=== PATIENT | male | born 1975 | race Caucasian/White ===

== ENCOUNTER 2022-09-25 12:26 | Inpatient (IN) | payer OTHER ==
[2022-09-25 12:46] VITALS: BMI 28.7
[2022-09-25] MEDS ORDERED: BENZONATATE 200 MG CAPSULE PO PRN (12:52)
[2022-09-25] MEDS ORDERED: ACETAMINOPHEN 325 MG TABLET (FP) PO PRN (12:52)
[2022-09-25] MEDS ORDERED: NALOXONE HCL (KLOXXADO) 8 MG SPRAY NS PRN (12:52)
[2022-09-25] MEDS ORDERED: MAGNESIUM HYDROX 2400MG/30ML ORAL SUSPENSION 30 ML CUP PO PRN (12:52)
[2022-09-25] MEDS ORDERED: LOPERAMIDE HCL 2 MG CAPSULE PO PRN (12:52)
[2022-09-25] MEDS ORDERED: guaiFENesin 600 MG TABLET.ER (FP) PO PRN (12:52)
[2022-09-25] MEDS ORDERED: POLYETHYLENE GLYCOL (HEALTHYLAX) 3350 17 GM PACKET PO PRN (12:52)
[2022-09-25] MEDS ORDERED: MAG HYDROX/AL HYDROX/SIMETH 30 ML UNIT-DOSE CUP PO PRN (12:52)
[2022-09-25] MEDS ORDERED: BENZOCAINE/MENTHOL (CHLORASEPTIC ) LOZENGE MM PRN (12:52)
[2022-09-25] MEDS ORDERED: NALOXONE HCL 0.4 MG/ML VIAL IM PRN (12:52)
[2022-09-25] MEDS ORDERED: TUBERCULIN PPD 5 TU/0.1ML VIAL ID ONE (16:40)
[2022-09-25] MEDS: PRENATAL VITAMINS W/ FOLIC ACID TABLET (FP) PO SCH (16:43)
[2022-09-25] MEDS: NICOTINE 10 MG CARTRIDGE (INHALER) IH PRN (18:46)
[2022-09-25] MEDS: THIAMINE HCL 100 MG TABLET (FP) PO SCH (21:26)
[2022-09-25] MEDS: MELATONIN 5 MG TABLETS PO SCH (21:26)
[2022-09-25] MEDS: IBUPROFEN 400 MG TABLET (FP) PO PRN (21:26)
[2022-09-25] MEDS: hydrOXYzine PAMOATE 25 MG CAPSULE (FP) PO PRN (21:26)
[2022-09-26] MEDS: IBUPROFEN 400 MG TABLET (FP) PO PRN (02:17)
[2022-09-26] MEDS: HYDROCHLOROTHIAZIDE 12.5 MG CAPSULE (FP) PO SCH (09:16)
[2022-09-26] MEDS: PANTOPRAZOLE 40 MG TABLET PO SCH (09:16)
[2022-09-26] MEDS: PRENATAL VITAMINS W/ FOLIC ACID TABLET (FP) PO SCH (09:16)
[2022-09-26] MEDS: LISINOPRIL 10 MG TABLET PO SCH (09:16)
[2022-09-26] MEDS: IBUPROFEN 600 MG TABLET (FP) PO PRN ×2 (09:17→14:42)
[2022-09-26] MEDS: NICOTINE 14 MG/24 HOURS TOPICAL PATCH TD SCH (09:18)
[2022-09-26] MEDS ORDERED: PATIENT'S OWN MEDICATION (NON-FORMULARY) (Lisinopril/Hydrochlorothiazide [Lisinopril-Hctz PO SCH (10:00)
[2022-09-26] MEDS ORDERED: BUPRENORPHINE HCL 75 MCG FILM BC ONE (10:45)
[2022-09-26] MEDS ORDERED: ZIPRASIDONE 60 MG CAPSULE PO ONE (12:12)
[2022-09-26] MEDS ORDERED: ZIPRASIDONE 20 MG CAPSULE PO ONE (12:12)
[2022-09-26] MEDS ORDERED: BENZTROPINE MESYLATE 1 MG TABLET PO ONE (12:13)
[2022-09-26] MEDS: AMOX TR/POT CLAV 500MG/125MG TABLETS (FP) PO SCH ×2 (14:04→16:42)
[2022-09-26 15:23] LABS: SYPHILIS W/ RPR CONF NON-REACTIVE (NONREACTIVE)
[2022-09-26] MEDS: THIAMINE HCL 100 MG TABLET (FP) PO SCH (21:11)
[2022-09-26] MEDS: MELATONIN 5 MG TABLETS PO SCH (21:11)
[2022-09-26] MEDS: BENZTROPINE MESYLATE 1 MG TABLET PO SCH (21:12)
[2022-09-26] MEDS: ZIPRASIDONE 60 MG CAPSULE PO SCH (22:25)
[2022-09-27] MEDS: IBUPROFEN 400 MG TABLET (FP) PO PRN ×2 (04:20→14:07)
[2022-09-27] MEDS: AMOX TR/POT CLAV 500MG/125MG TABLETS (FP) PO SCH ×3 (07:06→16:42)
[2022-09-27] MEDS: NICOTINE 14 MG/24 HOURS TOPICAL PATCH TD SCH (10:20)
[2022-09-27] MEDS: ESCITALOPRAM OXALATE 10 MG TABLET PO SCH (10:21)
[2022-09-27] MEDS: HYDROCHLOROTHIAZIDE 12.5 MG CAPSULE (FP) PO SCH (10:21)
[2022-09-27] MEDS: ZIPRASIDONE 60 MG CAPSULE PO SCH ×2 (10:21→21:11)
[2022-09-27] MEDS: PRENATAL VITAMINS W/ FOLIC ACID TABLET (FP) PO SCH (10:21)
[2022-09-27] MEDS: PANTOPRAZOLE 40 MG TABLET PO SCH (10:21)
[2022-09-27] MEDS: LISINOPRIL 10 MG TABLET PO SCH (10:21)
[2022-09-27] MEDS: BENZTROPINE MESYLATE 1 MG TABLET PO SCH ×2 (10:21→21:11)
[2022-09-27] MEDS: BUPRENORPHINE HCL 450 MCG FILM BC SCH ×2 (10:50→21:11)
[2022-09-27] MEDS: IBUPROFEN 600 MG TABLET (FP) PO PRN ×2 (19:09→22:50)
[2022-09-27] MEDS: MELATONIN 5 MG TABLETS PO SCH (21:10)
[2022-09-27] MEDS: THIAMINE HCL 100 MG TABLET (FP) PO SCH (21:11)
[2022-09-28] MEDS: AMOX TR/POT CLAV 500MG/125MG TABLETS (FP) PO SCH ×3 (07:06→17:00)
[2022-09-28] MEDS ORDERED: BUPRENORPHINE HCL 450 MCG FILM BC SCH (08:00)
[2022-09-28] MEDS: HYDROCHLOROTHIAZIDE 12.5 MG CAPSULE (FP) PO SCH (09:41)
[2022-09-28] MEDS: PRENATAL VITAMINS W/ FOLIC ACID TABLET (FP) PO SCH (09:41)
[2022-09-28] MEDS: NICOTINE 14 MG/24 HOURS TOPICAL PATCH TD SCH (09:41)
[2022-09-28] MEDS: ZIPRASIDONE 60 MG CAPSULE PO SCH ×2 (09:41→21:20)
[2022-09-28] MEDS: ESCITALOPRAM OXALATE 10 MG TABLET PO SCH (09:42)
[2022-09-28] MEDS: LISINOPRIL 10 MG TABLET PO SCH (09:42)
[2022-09-28] MEDS: BENZTROPINE MESYLATE 1 MG TABLET PO SCH ×2 (09:42→21:20)
[2022-09-28] MEDS: PANTOPRAZOLE 40 MG TABLET PO SCH (09:42)
[2022-09-28] MEDS: IBUPROFEN 600 MG TABLET (FP) PO PRN ×2 (09:43→17:00)
[2022-09-28] MEDS: NICOTINE 10 MG CARTRIDGE (INHALER) IH PRN (10:58)
[2022-09-28] MEDS: THIAMINE HCL 100 MG TABLET (FP) PO SCH (21:20)
[2022-09-28] MEDS: MELATONIN 5 MG TABLETS PO SCH (21:20)
[2022-09-28] MEDS: IBUPROFEN 400 MG TABLET (FP) PO PRN (21:22)
[2022-09-28] MEDS: hydrOXYzine PAMOATE 25 MG CAPSULE (FP) PO PRN (23:05)
[2022-09-29] MEDS: IBUPROFEN 400 MG TABLET (FP) PO PRN (06:08)
[2022-09-29] MEDS: AMOX TR/POT CLAV 500MG/125MG TABLETS (FP) PO SCH ×3 (07:02→16:55)
[2022-09-29] MEDS ORDERED: BUPRENORPHINE HCL 150 MCG FILM BC SCH (08:00)
[2022-09-29] MEDS ORDERED: BUPRENORPHINE HCL 150 MCG, BUPRENORPHINE HCL 75 MCG BC ONE (09:20)
[2022-09-29] MEDS: PANTOPRAZOLE 40 MG TABLET PO SCH (09:39)
[2022-09-29] MEDS: ESCITALOPRAM OXALATE 10 MG TABLET PO SCH (09:39)
[2022-09-29] MEDS: BENZTROPINE MESYLATE 1 MG TABLET PO SCH ×2 (09:39→21:15)
[2022-09-29] MEDS: ZIPRASIDONE 60 MG CAPSULE PO SCH ×2 (09:39→21:15)
[2022-09-29] MEDS: NICOTINE 14 MG/24 HOURS TOPICAL PATCH TD SCH (09:39)
[2022-09-29] MEDS: LISINOPRIL 10 MG TABLET PO SCH (09:39)
[2022-09-29] MEDS: PRENATAL VITAMINS W/ FOLIC ACID TABLET (FP) PO SCH (09:39)
[2022-09-29] MEDS: HYDROCHLOROTHIAZIDE 12.5 MG CAPSULE (FP) PO SCH (09:39)
[2022-09-29] MEDS: IBUPROFEN 600 MG TABLET (FP) PO PRN (16:56)
[2022-09-29] MEDS: hydrOXYzine PAMOATE 25 MG CAPSULE (FP) PO PRN (21:15)
[2022-09-29] MEDS: MELATONIN 5 MG TABLETS PO SCH (21:15)
[2022-09-29] MEDS: THIAMINE HCL 100 MG TABLET (FP) PO SCH (21:16)
[2022-09-30] MEDS: IBUPROFEN 400 MG TABLET (FP) PO PRN (06:21)
[2022-09-30] MEDS: AMOX TR/POT CLAV 500MG/125MG TABLETS (FP) PO SCH ×3 (07:06→16:55)
[2022-09-30] MEDS ORDERED: BUPRENORPHINE HCL 150 MCG FILM BC SCH (08:00)
[2022-09-30] MEDS: PANTOPRAZOLE 40 MG TABLET PO SCH (09:56)
[2022-09-30] MEDS: PRENATAL VITAMINS W/ FOLIC ACID TABLET (FP) PO SCH (09:56)
[2022-09-30] MEDS: ESCITALOPRAM OXALATE 10 MG TABLET PO SCH (09:56)
[2022-09-30] MEDS: BENZTROPINE MESYLATE 1 MG TABLET PO SCH ×2 (09:56→21:17)
[2022-09-30] MEDS: LISINOPRIL 10 MG TABLET PO SCH (09:56)
[2022-09-30] MEDS: HYDROCHLOROTHIAZIDE 12.5 MG CAPSULE (FP) PO SCH (09:56)
[2022-09-30] MEDS: NICOTINE 14 MG/24 HOURS TOPICAL PATCH TD SCH (09:57)
[2022-09-30] MEDS: ZIPRASIDONE 60 MG CAPSULE PO SCH ×2 (09:57→21:17)
[2022-09-30] MEDS: IBUPROFEN 600 MG TABLET (FP) PO PRN ×2 (16:55→21:18)
[2022-09-30] MEDS: MELATONIN 5 MG TABLETS PO SCH (21:17)
[2022-09-30] MEDS: THIAMINE HCL 100 MG TABLET (FP) PO SCH (21:18)
[2022-09-30] MEDS: hydrOXYzine PAMOATE 25 MG CAPSULE (FP) PO PRN (21:18)
[2022-10-01] MEDS: AMOX TR/POT CLAV 500MG/125MG TABLETS (FP) PO SCH ×3 (07:08→17:24)
[2022-10-01] MEDS ORDERED: BUPRENORPHINE HCL 75 MCG FILM BC SCH (08:00)
[2022-10-01] MEDS: HYDROCHLOROTHIAZIDE 12.5 MG CAPSULE (FP) PO SCH (09:40)
[2022-10-01] MEDS: ESCITALOPRAM OXALATE 10 MG TABLET PO SCH (09:40)
[2022-10-01] MEDS: PANTOPRAZOLE 40 MG TABLET PO SCH (09:40)
[2022-10-01] MEDS: PRENATAL VITAMINS W/ FOLIC ACID TABLET (FP) PO SCH (09:40)
[2022-10-01] MEDS: NICOTINE 14 MG/24 HOURS TOPICAL PATCH TD SCH (09:40)
[2022-10-01] MEDS: LISINOPRIL 10 MG TABLET PO SCH (09:40)
[2022-10-01] MEDS: BENZTROPINE MESYLATE 1 MG TABLET PO SCH ×2 (09:40→21:18)
[2022-10-01] MEDS: ZIPRASIDONE 60 MG CAPSULE PO SCH ×2 (11:09→21:18)
[2022-10-01] MEDS ORDERED: BUPRENORPHINE/NALOXONE 2 MG/0.5 MG FILM PACKET SL SCH (12:00)
[2022-10-01] MEDS: MELATONIN 5 MG TABLETS PO SCH (21:18)
[2022-10-01] MEDS: THIAMINE HCL 100 MG TABLET (FP) PO SCH (21:18)
[2022-10-02] MEDS: AMOX TR/POT CLAV 500MG/125MG TABLETS (FP) PO SCH ×3 (07:02→16:36)
[2022-10-02] MEDS: IBUPROFEN 600 MG TABLET (FP) PO PRN (10:11)
[2022-10-02] MEDS: PRENATAL VITAMINS W/ FOLIC ACID TABLET (FP) PO SCH (10:12)
[2022-10-02] MEDS: ZIPRASIDONE 60 MG CAPSULE PO SCH ×2 (10:12→21:32)
[2022-10-02] MEDS: LISINOPRIL 10 MG TABLET PO SCH (10:12)
[2022-10-02] MEDS: BENZTROPINE MESYLATE 1 MG TABLET PO SCH ×2 (10:12→21:32)
[2022-10-02] MEDS: NICOTINE 14 MG/24 HOURS TOPICAL PATCH TD SCH (10:12)
[2022-10-02] MEDS: HYDROCHLOROTHIAZIDE 12.5 MG CAPSULE (FP) PO SCH (10:12)
[2022-10-02] MEDS: PANTOPRAZOLE 40 MG TABLET PO SCH (10:12)
[2022-10-02] MEDS: ESCITALOPRAM OXALATE 10 MG TABLET PO SCH (10:12)
[2022-10-02] MEDS: BUPRENORPHINE/NALOXONE 4 MG/1 MG FILM PACKET SL SCH (10:52)
[2022-10-02] MEDS: NICOTINE 10 MG CARTRIDGE (INHALER) IH PRN (15:21)
[2022-10-02] MEDS: THIAMINE HCL 100 MG TABLET (FP) PO SCH (21:31)
[2022-10-02] MEDS: traZODone HCL 100 MG TABLET (FP) PO PRN (21:32)
[2022-10-02] MEDS: hydrOXYzine PAMOATE 25 MG CAPSULE (FP) PO PRN (21:32)
[2022-10-03] MEDS: BUPRENORPHINE/NALOXONE 4 MG/1 MG FILM PACKET SL SCH (06:08)
[2022-10-03] MEDS: AMOX TR/POT CLAV 500MG/125MG TABLETS (FP) PO SCH ×3 (07:01→17:26)
[2022-10-03] MEDS: ZIPRASIDONE 60 MG CAPSULE PO SCH ×2 (10:24→21:06)
[2022-10-03] MEDS: PRENATAL VITAMINS W/ FOLIC ACID TABLET (FP) PO SCH (10:24)
[2022-10-03] MEDS: NICOTINE 14 MG/24 HOURS TOPICAL PATCH TD SCH (10:25)
[2022-10-03] MEDS: BENZTROPINE MESYLATE 1 MG TABLET PO SCH ×2 (10:25→21:05)
[2022-10-03] MEDS: LISINOPRIL 10 MG TABLET PO SCH (10:25)
[2022-10-03] MEDS: HYDROCHLOROTHIAZIDE 12.5 MG CAPSULE (FP) PO SCH (10:25)
[2022-10-03] MEDS: PANTOPRAZOLE 40 MG TABLET PO SCH (10:25)
[2022-10-03] MEDS: ESCITALOPRAM OXALATE 10 MG TABLET PO SCH (10:25)
[2022-10-03 12:08] LABS: BASO % 1.4 % (0-2.0); EOS % 5.5 % (0-4.5); HEMOGLOBIN 13.8 GM/dL (11.7-16.9); LYMPH % 34.3 % (8-40); MCH 27.2 pg (25.7-33.7); MCHC 33.6 g/dl (32.0-35.9); MEAN CELL VOLUME 80.9 fl (80-96); MEAN PLT VOLUME 8.4 fl (7.5-11.1); MONO % 12.9 % (3.8-10.2); NEUT % 45.9 % (42.8-82.8); PLATELET COUNT 317 10^3/uL (134-434); RBC 5.07 M/mm3 (4.00-5.60); RDW 15.7 % (11.9-15.9); WHITE BLOOD COUNT 7.8 K/mm3 (4.0-10.0)
[2022-10-03 12:31] LABS: ALBUMIN 3.9 g/dl (3.4-5.0); CALCIUM 9.6 mg/dL (8.5-10.1)
[2022-10-03 12:32] LABS: BLOOD UREA NITROGEN 21.5 mg/dL (7-18)
[2022-10-03 12:34] LABS: CREATININE 1.1 mg/dL (0.55-1.3)
[2022-10-03 12:36] LABS: TOT PROT 7.6 g/dl (6.4-8.2)
[2022-10-03] MEDS: traZODone HCL 100 MG TABLET (FP) PO PRN (21:05)
[2022-10-03] MEDS: THIAMINE HCL 100 MG TABLET (FP) PO SCH (21:05)
[2022-10-04] MEDS: BUPRENORPHINE/NALOXONE 4 MG/1 MG FILM PACKET SL SCH (06:10)
[2022-10-04] MEDS: LISINOPRIL 10 MG TABLET PO SCH (09:55)
[2022-10-04] MEDS: BENZTROPINE MESYLATE 1 MG TABLET PO SCH ×2 (09:55→21:24)
[2022-10-04] MEDS: PRENATAL VITAMINS W/ FOLIC ACID TABLET (FP) PO SCH (09:55)
[2022-10-04] MEDS: NICOTINE 14 MG/24 HOURS TOPICAL PATCH TD SCH (09:55)
[2022-10-04] MEDS: HYDROCHLOROTHIAZIDE 12.5 MG CAPSULE (FP) PO SCH (09:55)
[2022-10-04] MEDS: ZIPRASIDONE 60 MG CAPSULE PO SCH ×2 (09:55→21:24)
[2022-10-04] MEDS: ESCITALOPRAM OXALATE 10 MG TABLET PO SCH (09:56)
[2022-10-04] MEDS: PANTOPRAZOLE 40 MG TABLET PO SCH (09:56)
[2022-10-04] MEDS: NICOTINE 10 MG CARTRIDGE (INHALER) IH PRN (09:57)
[2022-10-04] MEDS: THIAMINE HCL 100 MG TABLET (FP) PO SCH (21:24)
[2022-10-04] MEDS: traZODone HCL 100 MG TABLET (FP) PO PRN (21:24)
[2022-10-05] MEDS: BUPRENORPHINE/NALOXONE 8 MG/2 MG FILM PACKET SL SCH (07:07)
[2022-10-05] MEDS: PRENATAL VITAMINS W/ FOLIC ACID TABLET (FP) PO SCH (10:18)
[2022-10-05] MEDS: HYDROCHLOROTHIAZIDE 12.5 MG CAPSULE (FP) PO SCH (10:19)
[2022-10-05] MEDS: LISINOPRIL 10 MG TABLET PO SCH (10:19)
[2022-10-05] MEDS: PANTOPRAZOLE 40 MG TABLET PO SCH (10:19)
[2022-10-05] MEDS: ESCITALOPRAM OXALATE 10 MG TABLET PO SCH (10:19)
[2022-10-05] MEDS: BENZTROPINE MESYLATE 1 MG TABLET PO SCH ×2 (10:19→21:03)
[2022-10-05] MEDS: ZIPRASIDONE 60 MG CAPSULE PO SCH ×2 (10:20→21:03)
[2022-10-05] MEDS: NICOTINE 14 MG/24 HOURS TOPICAL PATCH TD SCH (10:20)
[2022-10-05] MEDS: THIAMINE HCL 100 MG TABLET (FP) PO SCH (21:03)
[2022-10-05] MEDS: traZODone HCL 100 MG TABLET (FP) PO PRN (21:26)
[2022-10-06] MEDS: BUPRENORPHINE/NALOXONE 8 MG/2 MG FILM PACKET SL SCH (07:07)
[2022-10-06] MEDS: NICOTINE 10 MG CARTRIDGE (INHALER) IH PRN (08:32)
[2022-10-06] MEDS: ZIPRASIDONE 60 MG CAPSULE PO SCH ×2 (09:49→21:01)
[2022-10-06] MEDS: PRENATAL VITAMINS W/ FOLIC ACID TABLET (FP) PO SCH (09:49)
[2022-10-06] MEDS: LISINOPRIL 10 MG TABLET PO SCH (09:49)
[2022-10-06] MEDS: ESCITALOPRAM OXALATE 10 MG TABLET PO SCH (09:49)
[2022-10-06] MEDS: NICOTINE 14 MG/24 HOURS TOPICAL PATCH TD SCH (09:49)
[2022-10-06] MEDS: HYDROCHLOROTHIAZIDE 12.5 MG CAPSULE (FP) PO SCH (09:49)
[2022-10-06] MEDS: PANTOPRAZOLE 40 MG TABLET PO SCH (09:49)
[2022-10-06] MEDS: BENZTROPINE MESYLATE 1 MG TABLET PO SCH ×2 (09:49→21:01)
[2022-10-06] MEDS: THIAMINE HCL 100 MG TABLET (FP) PO SCH (21:01)
[2022-10-06] MEDS: traZODone HCL 100 MG TABLET (FP) PO PRN (21:01)
[2022-10-07] MEDS: BUPRENORPHINE/NALOXONE 8 MG/2 MG FILM PACKET SL SCH (07:11)
[2022-10-07] MEDS: NICOTINE 14 MG/24 HOURS TOPICAL PATCH TD SCH (10:12)
[2022-10-07] MEDS: PRENATAL VITAMINS W/ FOLIC ACID TABLET (FP) PO SCH (10:12)
[2022-10-07] MEDS: NICOTINE 10 MG CARTRIDGE (INHALER) IH PRN (10:13)
[2022-10-07] MEDS: ZIPRASIDONE 60 MG CAPSULE PO SCH ×2 (10:13→21:14)
[2022-10-07] MEDS: PANTOPRAZOLE 40 MG TABLET PO SCH (10:14)
[2022-10-07] MEDS: ESCITALOPRAM OXALATE 10 MG TABLET PO SCH (10:14)
[2022-10-07] MEDS: LISINOPRIL 10 MG TABLET PO SCH (10:14)
[2022-10-07] MEDS: HYDROCHLOROTHIAZIDE 12.5 MG CAPSULE (FP) PO SCH (10:14)
[2022-10-07] MEDS: BENZTROPINE MESYLATE 1 MG TABLET PO SCH ×2 (10:14→21:13)
[2022-10-07] MEDS: traZODone HCL 100 MG TABLET (FP) PO PRN (21:13)
[2022-10-07] MEDS: THIAMINE HCL 100 MG TABLET (FP) PO SCH (21:13)
[2022-10-08] MEDS: BUPRENORPHINE/NALOXONE 8 MG/2 MG FILM PACKET SL SCH (07:00)
[2022-10-08] MEDS: NICOTINE 14 MG/24 HOURS TOPICAL PATCH TD SCH (10:06)
[2022-10-08] MEDS: PRENATAL VITAMINS W/ FOLIC ACID TABLET (FP) PO SCH (10:06)
[2022-10-08] MEDS: NICOTINE 10 MG CARTRIDGE (INHALER) IH PRN ×2 (10:06→13:57)
[2022-10-08] MEDS: HYDROCHLOROTHIAZIDE 12.5 MG CAPSULE (FP) PO SCH (10:07)
[2022-10-08] MEDS: ESCITALOPRAM OXALATE 10 MG TABLET PO SCH (10:07)
[2022-10-08] MEDS: BENZTROPINE MESYLATE 1 MG TABLET PO SCH ×2 (10:07→21:22)
[2022-10-08] MEDS: PANTOPRAZOLE 40 MG TABLET PO SCH (10:07)
[2022-10-08] MEDS: LISINOPRIL 10 MG TABLET PO SCH (10:07)
[2022-10-08] MEDS: ZIPRASIDONE 60 MG CAPSULE PO SCH ×2 (10:08→21:22)
[2022-10-08] MEDS: THIAMINE HCL 100 MG TABLET (FP) PO SCH (21:22)
[2022-10-08] MEDS: traZODone HCL 100 MG TABLET (FP) PO PRN (21:23)
[2022-10-09] MEDS: BUPRENORPHINE/NALOXONE 8 MG/2 MG FILM PACKET SL SCH (07:04)
[2022-10-09] MEDS: PANTOPRAZOLE 40 MG TABLET PO SCH (10:11)
[2022-10-09] MEDS: ZIPRASIDONE 60 MG CAPSULE PO SCH ×2 (10:11→21:15)
[2022-10-09] MEDS: HYDROCHLOROTHIAZIDE 12.5 MG CAPSULE (FP) PO SCH (10:11)
[2022-10-09] MEDS: BENZTROPINE MESYLATE 1 MG TABLET PO SCH ×2 (10:11→21:15)
[2022-10-09] MEDS: LISINOPRIL 10 MG TABLET PO SCH (10:11)
[2022-10-09] MEDS: NICOTINE 14 MG/24 HOURS TOPICAL PATCH TD SCH (10:12)
[2022-10-09] MEDS: PRENATAL VITAMINS W/ FOLIC ACID TABLET (FP) PO SCH (10:12)
[2022-10-09] MEDS: VENLAFAXINE HCL 37.5 MG E.R. CAPSULE PO SCH (10:23)
[2022-10-09] MEDS: traZODone HCL 100 MG TABLET (FP) PO PRN (21:15)
[2022-10-09] MEDS: THIAMINE HCL 100 MG TABLET (FP) PO SCH (21:15)
[2022-10-09] MEDS: NICOTINE 10 MG CARTRIDGE (INHALER) IH PRN (21:15)
[2022-10-10] MEDS: BUPRENORPHINE/NALOXONE 8 MG/2 MG FILM PACKET SL SCH (07:33)
[2022-10-10] MEDS: NICOTINE 14 MG/24 HOURS TOPICAL PATCH TD SCH (09:39)
[2022-10-10] MEDS: BENZTROPINE MESYLATE 1 MG TABLET PO SCH ×2 (09:39→21:29)
[2022-10-10] MEDS: PANTOPRAZOLE 40 MG TABLET PO SCH (09:39)
[2022-10-10] MEDS: PRENATAL VITAMINS W/ FOLIC ACID TABLET (FP) PO SCH (09:39)
[2022-10-10] MEDS: ZIPRASIDONE 60 MG CAPSULE PO SCH ×2 (09:40→21:29)
[2022-10-10] MEDS: VENLAFAXINE HCL 37.5 MG E.R. CAPSULE PO SCH (09:40)
[2022-10-10] MEDS: NICOTINE 10 MG CARTRIDGE (INHALER) IH PRN (10:15)
[2022-10-10] MEDS: HYDROCHLOROTHIAZIDE 12.5 MG CAPSULE (FP) PO SCH (10:16)
[2022-10-10] MEDS: LISINOPRIL 10 MG TABLET PO SCH (10:16)
[2022-10-10] MEDS: traZODone HCL 100 MG TABLET (FP) PO PRN (21:29)
[2022-10-10] MEDS: THIAMINE HCL 100 MG TABLET (FP) PO SCH (21:29)
[2022-10-11] MEDS: BUPRENORPHINE/NALOXONE 8 MG/2 MG FILM PACKET SL SCH (07:11)
[2022-10-11] MEDS: NICOTINE 14 MG/24 HOURS TOPICAL PATCH TD SCH (09:49)
[2022-10-11] MEDS: PANTOPRAZOLE 40 MG TABLET PO SCH (09:49)
[2022-10-11] MEDS: ZIPRASIDONE 60 MG CAPSULE PO SCH ×2 (09:49→21:01)
[2022-10-11] MEDS: VENLAFAXINE HCL 37.5 MG E.R. CAPSULE PO SCH (09:49)
[2022-10-11] MEDS: HYDROCHLOROTHIAZIDE 12.5 MG CAPSULE (FP) PO SCH (09:49)
[2022-10-11] MEDS: BENZTROPINE MESYLATE 1 MG TABLET PO SCH ×2 (09:49→21:01)
[2022-10-11] MEDS: LISINOPRIL 10 MG TABLET PO SCH (09:49)
[2022-10-11] MEDS: PRENATAL VITAMINS W/ FOLIC ACID TABLET (FP) PO SCH (09:49)
[2022-10-11] MEDS: NICOTINE 10 MG CARTRIDGE (INHALER) IH PRN ×2 (10:15→19:01)
[2022-10-11] MEDS: THIAMINE HCL 100 MG TABLET (FP) PO SCH (21:00)
[2022-10-11] MEDS: traZODone HCL 100 MG TABLET (FP) PO PRN (21:01)
[2022-10-12] MEDS: BUPRENORPHINE/NALOXONE 8 MG/2 MG FILM PACKET SL SCH (07:04)
[2022-10-12] MEDS: PRENATAL VITAMINS W/ FOLIC ACID TABLET (FP) PO SCH (09:55)
[2022-10-12] MEDS: LISINOPRIL 10 MG TABLET PO SCH (09:56)
[2022-10-12] MEDS: PANTOPRAZOLE 40 MG TABLET PO SCH (09:57)
[2022-10-12] MEDS: ZIPRASIDONE 60 MG CAPSULE PO SCH ×2 (09:57→21:24)
[2022-10-12] MEDS: BENZTROPINE MESYLATE 1 MG TABLET PO SCH ×2 (09:57→21:23)
[2022-10-12] MEDS: HYDROCHLOROTHIAZIDE 12.5 MG CAPSULE (FP) PO SCH (09:57)
[2022-10-12] MEDS: NICOTINE 10 MG CARTRIDGE (INHALER) IH PRN ×2 (09:58→15:50)
[2022-10-12] MEDS: VENLAFAXINE HCL 37.5 MG E.R. CAPSULE PO SCH (09:58)
[2022-10-12] MEDS: NICOTINE 14 MG/24 HOURS TOPICAL PATCH TD SCH (10:44)
[2022-10-12] MEDS ORDERED: traZODone HCL 50 MG TABLET (FP) ONE (18:51)
[2022-10-12] MEDS: THIAMINE HCL 100 MG TABLET (FP) PO SCH (21:23)
[2022-10-12] MEDS: traZODone HCL 100 MG TABLET (FP) PO PRN (21:24)
[2022-10-13] MEDS: BUPRENORPHINE/NALOXONE 8 MG/2 MG FILM PACKET SL SCH (07:13)
[2022-10-13] MEDS: LISINOPRIL 10 MG TABLET PO SCH (10:12)
[2022-10-13] MEDS: PRENATAL VITAMINS W/ FOLIC ACID TABLET (FP) PO SCH (10:12)
[2022-10-13] MEDS: HYDROCHLOROTHIAZIDE 12.5 MG CAPSULE (FP) PO SCH (10:13)
[2022-10-13] MEDS: ZIPRASIDONE 60 MG CAPSULE PO SCH ×2 (10:13→21:31)
[2022-10-13] MEDS: PANTOPRAZOLE 40 MG TABLET PO SCH (10:13)
[2022-10-13] MEDS: BENZTROPINE MESYLATE 1 MG TABLET PO SCH ×2 (10:13→21:31)
[2022-10-13] MEDS: NICOTINE 14 MG/24 HOURS TOPICAL PATCH TD SCH (10:14)
[2022-10-13] MEDS: VENLAFAXINE HCL 37.5 MG E.R. CAPSULE PO SCH (10:14)
[2022-10-13] MEDS: NICOTINE 10 MG CARTRIDGE (INHALER) IH PRN ×2 (10:15→13:36)
[2022-10-13] MEDS: THIAMINE HCL 100 MG TABLET (FP) PO SCH (21:31)
[2022-10-13] MEDS: traZODone HCL 100 MG TABLET (FP) PO PRN (21:32)
[2022-10-14] MEDS: BUPRENORPHINE/NALOXONE 8 MG/2 MG FILM PACKET SL SCH (07:16)
[2022-10-14] MEDS: NICOTINE 10 MG CARTRIDGE (INHALER) IH PRN ×3 (07:50→23:17)
[2022-10-14] MEDS: VENLAFAXINE HCL 37.5 MG E.R. CAPSULE PO SCH (09:41)
[2022-10-14] MEDS: BENZTROPINE MESYLATE 1 MG TABLET PO SCH ×2 (09:41→22:01)
[2022-10-14] MEDS: PANTOPRAZOLE 40 MG TABLET PO SCH (09:42)
[2022-10-14] MEDS: PRENATAL VITAMINS W/ FOLIC ACID TABLET (FP) PO SCH (09:42)
[2022-10-14] MEDS: ZIPRASIDONE 60 MG CAPSULE PO SCH ×2 (09:42→22:01)
[2022-10-14] MEDS: HYDROCHLOROTHIAZIDE 12.5 MG CAPSULE (FP) PO SCH (09:42)
[2022-10-14] MEDS: LISINOPRIL 10 MG TABLET PO SCH (09:42)
[2022-10-14] MEDS: NICOTINE 14 MG/24 HOURS TOPICAL PATCH TD SCH (09:43)
[2022-10-14] MEDS: THIAMINE HCL 100 MG TABLET (FP) PO SCH (22:01)
[2022-10-14] MEDS: traZODone HCL 100 MG TABLET (FP) PO PRN (22:03)
[2022-10-15] MEDS: BUPRENORPHINE/NALOXONE 8 MG/2 MG FILM PACKET SL SCH (07:06)
[2022-10-15] MEDS: VENLAFAXINE HCL 75 MG E.R. CAPSULES PO SCH (09:31)
[2022-10-15] MEDS: PRENATAL VITAMINS W/ FOLIC ACID TABLET (FP) PO SCH (09:31)
[2022-10-15] MEDS: PANTOPRAZOLE 40 MG TABLET PO SCH (09:31)
[2022-10-15] MEDS: ZIPRASIDONE 60 MG CAPSULE PO SCH ×2 (09:31→21:13)
[2022-10-15] MEDS: BENZTROPINE MESYLATE 1 MG TABLET PO SCH ×2 (09:32→21:13)
[2022-10-15] MEDS: NICOTINE 14 MG/24 HOURS TOPICAL PATCH TD SCH (09:32)
[2022-10-15] MEDS: LISINOPRIL 10 MG TABLET PO SCH (09:32)
[2022-10-15] MEDS: HYDROCHLOROTHIAZIDE 12.5 MG CAPSULE (FP) PO SCH (09:32)
[2022-10-15] MEDS: NICOTINE 10 MG CARTRIDGE (INHALER) IH PRN ×2 (09:34→16:55)
[2022-10-15] MEDS: THIAMINE HCL 100 MG TABLET (FP) PO SCH (21:12)
[2022-10-15] MEDS: traZODone HCL 100 MG TABLET (FP) PO PRN (21:13)
[2022-10-16] MEDS: BUPRENORPHINE/NALOXONE 8 MG/2 MG FILM PACKET SL SCH (07:23)
[2022-10-16] MEDS: PANTOPRAZOLE 40 MG TABLET PO SCH (10:00)
[2022-10-16] MEDS: NICOTINE 14 MG/24 HOURS TOPICAL PATCH TD SCH (10:00)
[2022-10-16] MEDS: LISINOPRIL 10 MG TABLET PO SCH (10:00)
[2022-10-16] MEDS: VENLAFAXINE HCL 75 MG E.R. CAPSULES PO SCH (10:00)
[2022-10-16] MEDS: PRENATAL VITAMINS W/ FOLIC ACID TABLET (FP) PO SCH (10:00)
[2022-10-16] MEDS: ZIPRASIDONE 60 MG CAPSULE PO SCH ×2 (10:00→21:14)
[2022-10-16] MEDS: BENZTROPINE MESYLATE 1 MG TABLET PO SCH ×2 (10:00→21:13)
[2022-10-16] MEDS: HYDROCHLOROTHIAZIDE 12.5 MG CAPSULE (FP) PO SCH (10:00)
[2022-10-16] MEDS: NICOTINE 10 MG CARTRIDGE (INHALER) IH PRN ×2 (10:01→19:23)
[2022-10-16] MEDS: THIAMINE HCL 100 MG TABLET (FP) PO SCH (21:13)
[2022-10-16] MEDS: traZODone HCL 100 MG TABLET (FP) PO PRN (21:13)
[2022-10-17] MEDS: BUPRENORPHINE/NALOXONE 8 MG/2 MG FILM PACKET SL SCH (07:03)
[2022-10-17] MEDS: HYDROCHLOROTHIAZIDE 12.5 MG CAPSULE (FP) PO SCH (10:03)
[2022-10-17] MEDS: PANTOPRAZOLE 40 MG TABLET PO SCH (10:03)
[2022-10-17] MEDS: PRENATAL VITAMINS W/ FOLIC ACID TABLET (FP) PO SCH (10:03)
[2022-10-17] MEDS: BENZTROPINE MESYLATE 1 MG TABLET PO SCH ×2 (10:03→21:24)
[2022-10-17] MEDS: NICOTINE 10 MG CARTRIDGE (INHALER) IH PRN ×2 (10:04→21:24)
[2022-10-17] MEDS: ZIPRASIDONE 60 MG CAPSULE PO SCH ×2 (10:04→21:24)
[2022-10-17] MEDS: VENLAFAXINE HCL 75 MG E.R. CAPSULES PO SCH (10:04)
[2022-10-17] MEDS: NICOTINE 14 MG/24 HOURS TOPICAL PATCH TD SCH (10:04)
[2022-10-17] MEDS: LISINOPRIL 10 MG TABLET PO SCH (10:04)
[2022-10-17] MEDS: THIAMINE HCL 100 MG TABLET (FP) PO SCH (21:24)
[2022-10-17] MEDS: traZODone HCL 100 MG TABLET (FP) PO PRN (21:24)
[2022-10-18] MEDS: BUPRENORPHINE/NALOXONE 8 MG/2 MG FILM PACKET SL SCH (07:26)
[2022-10-18] MEDS: ZIPRASIDONE 60 MG CAPSULE PO SCH ×2 (09:44→21:27)
[2022-10-18] MEDS: PRENATAL VITAMINS W/ FOLIC ACID TABLET (FP) PO SCH (09:44)
[2022-10-18] MEDS: LISINOPRIL 10 MG TABLET PO SCH (09:44)
[2022-10-18] MEDS: NICOTINE 14 MG/24 HOURS TOPICAL PATCH TD SCH (09:44)
[2022-10-18] MEDS: VENLAFAXINE HCL 75 MG E.R. CAPSULES PO SCH (09:44)
[2022-10-18] MEDS: HYDROCHLOROTHIAZIDE 12.5 MG CAPSULE (FP) PO SCH (09:45)
[2022-10-18] MEDS: NICOTINE 10 MG CARTRIDGE (INHALER) IH PRN ×2 (09:45→21:27)
[2022-10-18] MEDS: BENZTROPINE MESYLATE 1 MG TABLET PO SCH ×2 (09:45→21:27)
[2022-10-18] MEDS: PANTOPRAZOLE 40 MG TABLET PO SCH (09:45)
[2022-10-18] MEDS: THIAMINE HCL 100 MG TABLET (FP) PO SCH (21:27)
[2022-10-18] MEDS: traZODone HCL 100 MG TABLET (FP) PO PRN (21:27)
[2022-10-19] MEDS: BUPRENORPHINE/NALOXONE 8 MG/2 MG FILM PACKET SL SCH (07:04)
[2022-10-19] MEDS: PRENATAL VITAMINS W/ FOLIC ACID TABLET (FP) PO SCH (10:16)
[2022-10-19] MEDS: LISINOPRIL 10 MG TABLET PO SCH (10:16)
[2022-10-19] MEDS: VENLAFAXINE HCL 75 MG E.R. CAPSULES PO SCH (10:16)
[2022-10-19] MEDS: NICOTINE 10 MG CARTRIDGE (INHALER) IH PRN ×2 (10:16→19:53)
[2022-10-19] MEDS: PANTOPRAZOLE 40 MG TABLET PO SCH (10:17)
[2022-10-19] MEDS: BENZTROPINE MESYLATE 1 MG TABLET PO SCH ×2 (10:17→21:10)
[2022-10-19] MEDS: HYDROCHLOROTHIAZIDE 12.5 MG CAPSULE (FP) PO SCH (10:17)
[2022-10-19] MEDS: ZIPRASIDONE 60 MG CAPSULE PO SCH ×2 (10:17→21:11)
[2022-10-19] MEDS: NICOTINE 14 MG/24 HOURS TOPICAL PATCH TD SCH (10:18)
[2022-10-19] MEDS: THIAMINE HCL 100 MG TABLET (FP) PO SCH (21:10)
[2022-10-19] MEDS: traZODone HCL 100 MG TABLET (FP) PO PRN (21:11)
[2022-10-20] MEDS: BUPRENORPHINE/NALOXONE 12 MG-3 MG SL FILM PACKET SL SCH (07:18)
[2022-10-20] MEDS: HYDROCHLOROTHIAZIDE 12.5 MG CAPSULE (FP) PO SCH (09:48)
[2022-10-20] MEDS: ZIPRASIDONE 60 MG CAPSULE PO SCH ×2 (09:48→21:23)
[2022-10-20] MEDS: VENLAFAXINE HCL 75 MG E.R. CAPSULES PO SCH (09:48)
[2022-10-20] MEDS: LISINOPRIL 10 MG TABLET PO SCH (09:48)
[2022-10-20] MEDS: NICOTINE 14 MG/24 HOURS TOPICAL PATCH TD SCH (09:48)
[2022-10-20] MEDS: BENZTROPINE MESYLATE 1 MG TABLET PO SCH ×2 (09:48→21:22)
[2022-10-20] MEDS: PANTOPRAZOLE 40 MG TABLET PO SCH (09:48)
[2022-10-20] MEDS: PRENATAL VITAMINS W/ FOLIC ACID TABLET (FP) PO SCH (09:48)
[2022-10-20] MEDS: NICOTINE 10 MG CARTRIDGE (INHALER) IH PRN ×2 (09:50→15:30)
[2022-10-20] MEDS: IBUPROFEN 600 MG TABLET (FP) PO PRN (19:33)
[2022-10-20] MEDS: traZODone HCL 100 MG TABLET (FP) PO PRN (21:22)
[2022-10-20] MEDS: THIAMINE HCL 100 MG TABLET (FP) PO SCH (21:22)
[2022-10-21] MEDS: BUPRENORPHINE/NALOXONE 12 MG-3 MG SL FILM PACKET SL SCH (06:59)
[2022-10-21] MEDS: VENLAFAXINE HCL 75 MG E.R. CAPSULES PO SCH (09:59)
[2022-10-21] MEDS: NICOTINE 10 MG CARTRIDGE (INHALER) IH PRN ×2 (09:59→19:15)
[2022-10-21] MEDS: NICOTINE 14 MG/24 HOURS TOPICAL PATCH TD SCH (09:59)
[2022-10-21] MEDS: HYDROCHLOROTHIAZIDE 12.5 MG CAPSULE (FP) PO SCH (10:00)
[2022-10-21] MEDS: PRENATAL VITAMINS W/ FOLIC ACID TABLET (FP) PO SCH (10:00)
[2022-10-21] MEDS: PANTOPRAZOLE 40 MG TABLET PO SCH (10:00)
[2022-10-21] MEDS: LISINOPRIL 10 MG TABLET PO SCH (10:00)
[2022-10-21] MEDS: BENZTROPINE MESYLATE 1 MG TABLET PO SCH ×2 (10:00→21:08)
[2022-10-21] MEDS: ZIPRASIDONE 60 MG CAPSULE PO SCH ×2 (10:00→21:08)
[2022-10-21] MEDS: THIAMINE HCL 100 MG TABLET (FP) PO SCH (21:08)
[2022-10-21] MEDS: traZODone HCL 100 MG TABLET (FP) PO PRN (21:08)
[2022-10-22] MEDS: BUPRENORPHINE/NALOXONE 12 MG-3 MG SL FILM PACKET SL SCH (07:11)
[2022-10-22] MEDS: ZIPRASIDONE 60 MG CAPSULE PO SCH ×2 (09:45→21:30)
[2022-10-22] MEDS: LISINOPRIL 10 MG TABLET PO SCH (09:45)
[2022-10-22] MEDS: VENLAFAXINE HCL 75 MG E.R. CAPSULES PO SCH (09:45)
[2022-10-22] MEDS: BENZTROPINE MESYLATE 1 MG TABLET PO SCH ×2 (09:45→21:29)
[2022-10-22] MEDS: HYDROCHLOROTHIAZIDE 12.5 MG CAPSULE (FP) PO SCH (09:45)
[2022-10-22] MEDS: PANTOPRAZOLE 40 MG TABLET PO SCH (09:45)
[2022-10-22] MEDS: PRENATAL VITAMINS W/ FOLIC ACID TABLET (FP) PO SCH (09:45)
[2022-10-22] MEDS: NICOTINE 14 MG/24 HOURS TOPICAL PATCH TD SCH (09:46)
[2022-10-22] MEDS: NICOTINE 10 MG CARTRIDGE (INHALER) IH PRN ×2 (09:46→18:20)
[2022-10-22] MEDS: THIAMINE HCL 100 MG TABLET (FP) PO SCH (21:29)
[2022-10-22] MEDS: traZODone HCL 100 MG TABLET (FP) PO PRN (21:29)
[2022-10-23] MEDS: BUPRENORPHINE/NALOXONE 12 MG-3 MG SL FILM PACKET SL SCH (07:09)
[2022-10-23 07:22] VITALS: TEMP 97.3
[2022-10-23 09:05] VITALS: BP 126/73; PULSE 74; RESP 18
[2022-10-23] MEDS: PRENATAL VITAMINS W/ FOLIC ACID TABLET (FP) PO SCH (09:05)
[2022-10-23] MEDS: ZIPRASIDONE 60 MG CAPSULE PO SCH (09:05)
[2022-10-23] MEDS: HYDROCHLOROTHIAZIDE 12.5 MG CAPSULE (FP) PO SCH (09:05)
[2022-10-23] MEDS: NICOTINE 14 MG/24 HOURS TOPICAL PATCH TD SCH (09:05)
[2022-10-23] MEDS: BENZTROPINE MESYLATE 1 MG TABLET PO SCH (09:06)
[2022-10-23] MEDS: PANTOPRAZOLE 40 MG TABLET PO SCH (09:06)
[2022-10-23] MEDS: VENLAFAXINE HCL 75 MG E.R. CAPSULES PO SCH (09:06)
[2022-10-23] MEDS: LISINOPRIL 10 MG TABLET PO SCH (09:06)
[2022-10-23] MEDS: NICOTINE 10 MG CARTRIDGE (INHALER) IH PRN (09:07)
== END 2022-10-23 09:30 | disposition home or self-care (01) | DRG 772 ==
LOC: YASAS 12:26 → Y3W 13:17
PROVIDERS: ADMIT Allergy & Immunology; ATTEND Psychiatry & Neurology Pain Medicine
PROC: HZ2ZZZZ Detoxification Services for Substance Abuse Treatment (ICD-10-PCS; 2022-09-25)
PROC: HZ42ZZZ Group Counseling for Substance Abuse Treatment, Cognitive-Behavioral (ICD-10-PCS; principal; 2022-10-09)
DX: F13.20 Sedative, hypnotic or anxiolytic dependence, uncomplicated (principal); F15.10 Other stimulant abuse, uncomplicated; F17.210 Nicotine dependence, cigarettes, uncomplicated; F19.24 Other psychoactive substance dependence with psychoactive substance-induced mood disorder; F25.9 Schizoaffective disorder, unspecified; G47.00 Insomnia, unspecified; I10 Essential (primary) hypertension; K21.9 Gastro-esophageal reflux disease without esophagitis; Z87.19 Personal history of other diseases of the digestive system; Z91.51 Personal history of suicidal behavior
CPT/HCPCS: 36415; 80053; 85025; 86780; 86803; 93005; 93010